=== PATIENT | female | born 1995 | race Caucasian/White ===

== ENCOUNTER 2016-09-11 19:52 | Emergency (ER) | payer OTHER ==
[2016-09-11 20:09] VITALS: BP 126/66; PULSE 68; TEMP 98.3; BMI 30.5
[2016-09-11] MEDS ORDERED: IBUPROFEN 600 MG TABLET (FP) PO ONE ×2 (20:36→20:42)
[2016-09-11] MEDS ORDERED: DIPHTH,PERTUSS(ACELL),TET VAC 0.5 ML VIAL IM ONE (20:36)
--- NOTE | 2016-09-11 20:44 | PDOC ---
History of Present Illness - General Chief Complaint: Injury Stated Complaint: FALL/HEAD INJURY Time Seen by Provider: 09/11/16 20:11 History Source: Patient Exam Limitations: No Limitations - History of Present Illness Initial Comments: 09/11/16 20:44 21-year-old female presents the ED status post injury to face. Patient states was walking down steps outside when she had missed the last step landing on a flowerpot abrading her face. Patient states had no LOC was put a nearby ER but due to the wait time she had left without medical evaluation. Patient states since then has been having pain to the left side of face but denies any visual changes, dizziness, or nausea. Patient unsure of her last tetanus and took nothing for the pain. Occurred: reports: this morning (2 am) Severity: reports: moderate Pain Location: reports: face Method of Injury: Yes: fall Loss of Consciousness: no loss of consciousness Associated Symptoms (Fall): denies symptoms Past History - Past Medical History Allergies/Adverse Reactions: Allergies Allergy/AdvReac Type Severity Reaction Status Date / Time No Known Allergies Allergy Verified 09/11/16 20:06 Home Medications: Ambulatory Orders NK [No Known Home Medication] 09/11/16 - Reproductive History LMP Normal: Yes Is Patient Now?: No - Psycho/Social/Smoking Cessation Hx Suicidal Ideation: No Smoking History: Never smoked Number of Cigarettes Smoked Daily: 0 Information on smoking cessation initiated: No Hx Alcohol Use: No Drug/Substance Use Hx: No Patient Lives Alone: No Lives with/in: parents Review of Systems - Review of Systems Able to Perform ROS?: Yes Constitutional: No: Symptoms Reported HEENTM: No: Symptoms Reported Respiratory: No: Symptoms reported Cardiac (ROS): No: Symptoms Reported ABD/GI: No: Symptoms Reported : No: Symptoms Reported Musculoskeletal: No: Back Pain, Neck Pain Integumentary: Yes: Change in Color, Erythema, Lumps Neurological: No: Symptoms reported Endocrine: No: Symptoms Reported Hematologic/Lymphatic: No: Symptoms Reported *Physical Exam - Vital Signs Last Vital Signs Temp Pulse Resp BP Pulse Ox 98.3 F 68 16 126/66 100 09/11/16 20:06 09/11/16 20:06 09/11/16 20:06 09/11/16 20:06 09/11/16 20:06 - Physical Exam General Appearance: Yes: Nourished, Appropriately Dressed. No: Apparent Distress HEENT: positive: EOMI, SABA, TMs Normal, Pharynx Normal (teeth intact). negative: Pale Conjunctivae Neck: positive: Supple. negative: Tender, Decreased range of motion Respiratory/Chest: positive: Lungs Clear, Normal Breath Sounds. negative: Chest Tender, Respiratory Distress, Accessory Muscle Use Cardiovascular: positive: Regular Rhythm, Regular Rate. negative: Murmur Integumentary: positive: Other (Patient with superficial linear abrasion to center of forehead, left nasal bridge, left upper cheek ,and left eyebrow.) Neurologic: positive: Motor Strength 5/5 ( ambulatory) ED Treatment Course - RADIOLOGY Radiology Studies Ordered: Category Date Time Status FACIAL BONES CT W/O CONTRAST [CT] Stat CT Scan 09/11/16 20:37 Ordered Medical Decision Making - Medical Decision Making 09/11/16 20:47 Patient status post fall with abrasions to face. Likely superficial but due to the mechanism will order facial CT including tetanus. Patient also ordered for Motrin for discomfort and will check for prior to CT. 09/11/16 21:19 Laboratory Tests 09/11/16 20:39 Urine HCG, Qual Negative 09/11/16 21:46 FINDINGS:Serial transaxial images of the maxillofacial bones are available without contrast. Sagittal and coronal reformatted imaging is also available. No acute osseous abnormality is seen. There is anatomic alignment of the temporomandibular joints. The mastoid air cells are well-aerated as are the paranasal sinuses. The orbital regions are normal. Discharge with recommendations to apply, take tylenol and use eye oitment to left eye. *DC/Admit/Observation/Transfer Diagnosis at time of Disposition: Contusion of face Qualifiers: Encounter type: initial encounter Qualified Code(s): S00.83XA - Contusion of other part of head, initial encounter Conjunctivitis Qualifiers: Conjunctivitis type: acute Acute conjunctivitis type: bacterial Laterality: left Qualified Code(s): H10.32 - Unspecified acute conjunctivitis, left eye - Discharge Dispostion Disposition: HOME Condition at time of disposition: Good - Referrals Referrals: Rodo Archer MD [Primary Care Provider] - - Patient Instructions Printed Discharge Instructions: DI for Conjunctivitis, DI for Contusion Additional Instructions: Apply ice to the affected areas for the next 2 days. Take Tylenol for discomfort. Use eye ointment as prescribed to prevent infection
== END 2016-09-11 22:06 | disposition home or self-care (01) ==
LOC: JERFT 19:52
PROC: 3E0234Z Introduction of Serum, Toxoid and Vaccine into Muscle, Percutaneous Approach (ICD-10-PCS; principal; 2016-09-11)
DX: S00.83XA Contusion of other part of head, initial encounter (principal); S00.81XA Abrasion of other part of head, initial encounter; H10.32 Unspecified acute conjunctivitis, left eye; W10.8XXA Fall (on) (from) other stairs and steps, initial encounter; W01.198A Fall on same level from slipping, tripping and stumbling with subsequent striking against other object, initial encounter; Y93.89 Activity, other specified; Y92.89 Other specified places as the place of occurrence of the external cause; Y99.8 Other external cause status
CPT/HCPCS: 70486-TC; 84703; 99281-25

== ENCOUNTER 2018-10-05 16:20 | Emergency (ER) | payer OTHER ==
[2018-10-05 17:25] VITALS: BP 119/64; PULSE 106; TEMP 99.9; BMI 32.8
[2018-10-05] MEDS ORDERED: IBUPROFEN 600 MG TABLET (FP) PO ONE ×2 (17:25→18:09)
--- NOTE | 2018-10-05 17:25 | PDOC ---
Rapid Medical Evaluation Time Seen by Provider: 10/05/18 17:23 Medical Evaluation: Allergies Allergy/AdvReac Type Severity Reaction Status Date / Time No Known Allergies Allergy Verified 09/11/16 20:06 10/05/18 17:23 Pt c/o: n/v/d since this am, roommate with influenza Pt on brief exam: 99.9, 106 Patient ordered for: motrin aND INFLUENZA Pt to proceed to the ED Discharge Disposition - Diagnosis Fever - Referrals Referrals: Rodo Archer MD [Primary Care Provider] - - Patient Instructions - Post Discharge Activity
[2018-10-05] MEDS ORDERED: ONDANSETRON *ODT* 4 MG TABLET SL ONE (18:13)
[2018-10-05] MEDS ORDERED: ONDANSETRON *ODT* 4 MG TABLET ONE (18:15)
--- NOTE | 2018-10-05 18:22 | PDOC ---
History of Present Illness - General Chief Complaint: Vomiting/Diarrhea Stated Complaint: Vomiting/Diarrhea Time Seen by Provider: 10/05/18 17:23 History Source: Patient Exam Limitations: Clinical Condition - History of Present Illness Initial Comments: 10/05/18 18:17 Patient with no significant past medication history present with complaint of nausea, vomiting and diarrhea with body aches since this morning. Patient reported improvement recently diagnosed with influenza. Patient LMP beginning of September.Patient sexually active with one female partner. Patient denies dizziness, chest pain, shortness of breath. Patient denies any other symptoms. Patient denies sore throat. 10/05/18 19:42 Timing/Duration: other (12hrs) Past History - Past Medical History Allergies/Adverse Reactions: Allergies Allergy/AdvReac Type Severity Reaction Status Date / Time No Known Allergies Allergy Verified 10/05/18 17:25 Home Medications: Ambulatory Orders Loperamide HCl [Loperamide] 2 mg PO Q8H PRN #12 capsule 10/05/18 Ondansetron [Zofran Odt -] 4 mg SL TID PRN #12 od.tablet 10/05/18 Oseltamivir Phosphate [Tamiflu] 75 mg PO BID 5 Days #10 capsule 10/05/18 COPD: No - Suicide/Smoking/Psychosocial Hx Smoking History: Never smoked Number of Cigarettes Smoked Daily: 0 Hx Alcohol Use: No Drug/Substance Use Hx: No Review of Systems - Review of Systems Able to Perform ROS?: Yes Is the patient limited Swedish proficient: No Constitutional: Yes: Malaise. No: Chills, Fever HEENTM: Yes: Symptoms Reported, See HPI, Nose Congestion. No: Eye Pain, Blurred Vision, Tearing, Recent change in vision, Double Vision, Cataracts, Ear Pain, Ocular Prothesis, Ear Discharge, Nose Pain, Tinnitus, Nose Bleeding, Hearing Loss, Throat Pain, Throat Swelling, Mouth Pain, Dental Problems, Difficulty Swallowing, Mouth Swelling, Other Respiratory: No: Symptoms reported, See HPI, Cough, Orthopnea, Shortness of Breath, SOB with Exertion, SOB at Rest, Stridor, Wheezing, Productive cough, Hemoptysis, Other Cardiac (ROS): No: Symptoms Reported, See HPI, Chest Pain, Edema, Irregular Heart Rate, Lightheadedness, Palpitations, Syncope, Chest Tightness, Other ABD/GI: Yes: See HPI, Diarrhea, Nausea, Vomiting. No: Constipated, Difficulty Swallowing, Rectal Bleeding, Abdominal cramping : No: Burning, Dysuria, Discharge, Frequency, Flank Pain, Urgency All Other Systems: Reviewed and Negative *Physical Exam - Vital Signs Last Vital Signs Temp Pulse Resp BP Pulse Ox 99.9 F H 106 H 18 119/64 97 10/05/18 17:23 10/05/18 17:23 10/05/18 17:23 10/05/18 17:23 10/05/18 17:23 - Physical Exam Comments: 10/05/18 18:19 GENERAL: Well developed, well nourished. Awake and alert. No acute distress. HEENT: Normocephalic, atraumatic. PERRLA, EOMI. No conjunctival pallor. Sclera are non-icteric. Moist mucous membranes. Oropharynx is clear. NECK: Supple. Full ROM. CARDIOVASCULAR: Regular rate and rhythm. No murmurs, rubs, or gallops. Distal pulses are 2+ and symmetric. PULMONARY: No evidence of respiratory distress. Lungs clear to auscultation bilaterally. No wheezing, rales or rhonchi. ABDOMINAL: Soft. Non-tender. Non-distended. No rebound or guarding. No organomegaly. Normoactive bowel sounds. MUSCULOSKELETAL Normal range of motion at all joints. EXTREMITIES: No cyanosis. SKIN: Warm and dry. Normal capillary refill. No rashes. No jaundice. NEUROLOGICAL: Alert, awake, appropriate. Gait is normal without ataxia. PSYCHIATRIC: Cooperative. Good eye contact. Appropriate mood General Appearance: Yes: Nourished, Appropriately Dressed. No: Apparent Distress Moderate Sedation - Procedure Monitoring Vital Signs: Procedure Monitoring Vital Signs Temperature 99.9 F H 10/05/18 17:23 Pulse Rate 106 H 10/05/18 17:23 Respiratory Rate 18 10/05/18 17:23 Blood Pressure 119/64 10/05/18 17:23 O2 Sat by Pulse Oximetry (%) 97 10/05/18 17:23 ED Treatment Course - Medications Given in the ED: ED Medications Discontinued Medications Generic Name Dose Route Start Last Admin Trade Name Freq PRN Reason Stop Dose Admin Ibuprofen 600 mg 10/05/18 17:25 10/05/18 18:17 Motrin - PO 10/05/18 17:26 600 mg ONCE ONE Administration Ondansetron HCl 4 mg 10/05/18 18:13 10/05/18 18:17 Zofran Odt - SL 10/05/18 18:14 4 mg ONCE ONE Administration Medical Decision Making - Medical Decision Making 10/05/18 18:21 Patient with no significant past medication history present with complaint of nausea, vomiting and diarrhea with body aches since this morning. Patient reported improvement recently diagnosed with influenza. Clinical exam unremarkable. No abdominal tenderness on exam. Lungs clear to auscultation bilateral. Rapid strep and rapid flu tests ordered. Zofran 4 mg sublingual ordered for nausea. Motrin given for low-grade fever and body aches. Treat based on lab results. 10/05/18 19:43 Rapid strep and rapid flu negative. Urine test canceled To Patient Reported Pain a Lesbian and urine specimen collected could not be found by lab after an hour of waiting and specimen was sent up to the lab by the nurse. Patient Symptoms Likely Viral Syndrome with Gastroenteritis. Patient Is Stable for Discharge on Outpatient Treatment with GI Follow-Up As Needed. *DC/Admit/Observation/Transfer Diagnosis at time of Disposition: Viral syndrome, Gastroenteritis Fever Qualifiers: Fever type: unspecified Qualified Code(s): R50.9 - Fever, unspecified Nausea & vomiting Qualifiers: Vomiting type: unspecified Vomiting Intractability: non-intractable Qualified Code(s): R11.2 - Nausea with vomiting, unspecified - Discharge Dispostion Disposition: HOME Condition at time of disposition: Stable Decision to Admit order: No - Prescriptions Prescriptions: Loperamide HCl [Loperamide] 2 mg PO Q8H PRN #12 capsule PRN Reason: diarrhea Ondansetron [Zofran Odt -] 4 mg SL TID PRN #12 od.tablet PRN Reason: vomiting Oseltamivir Phosphate [Tamiflu] 75 mg PO BID 5 Days #10 capsule - Referrals Referrals: Rodo Archer MD [Non Staff, Medical] - Cal Kunz MD [Staff Physician] - - Patient Instructions Printed Discharge Instructions: DI for Viral Gastroenteritis -- Adult Additional Instructions: Your flu and strep test was negative. Take medications as prescribed. Increase fluid intake. Follow-up referred GI doctor if symptoms persist for more than 3 days. - Post Discharge Activity
== END 2018-10-05 20:01 | disposition home or self-care (01) ==
LOC: JERFT 16:20
DX: K52.9 Noninfective gastroenteritis and colitis, unspecified (principal); B34.9 Viral infection, unspecified
CPT/HCPCS: 87070; 87804; 87880; 99281-25; Q0162